=== PATIENT | male | born 1990 | race Caucasian/White ===

== ENCOUNTER 2017-11-01 06:59 | Emergency (ER) | payer BC, OTHER ==
--- NOTE | 2017-11-01 07:54 | EDM.PDOC ---
ED HPI GENERAL MEDICAL PROBLEM - General Chief Complaint: ENT Problem Stated Complaint: CHEST PAIN/SOB Time Seen by Provider: 11/01/17 07:43 Source of Information: Reports: Patient, Family, RN Notes Reviewed History Limitations: Reports: No Limitations - History of Present Illness INITIAL COMMENTS - FREE TEXT/NARRATIVE: 27-year-old gentleman presents to the emergency department today with complaint of neck pain and shortness of breath, he states he's had this for about one month the pain has progressively gotten worse and over the last 24 hours gotten significantly worse. He states he does get short of breath with exertion especially going up steps, he states it hurts to take a deep breath no fevers no nausea vomiting no diaphoresis, sometimes pain radiating into the chest. right side throat pain Pain Score (Numeric/FACES): 5 - Related Data Allergies Allergy/AdvReac Type Severity Reaction Status Date / Time Penicillins Allergy Hives Verified 11/01/17 07:35 Sulfa (Sulfonamide Allergy Difficulty Verified 11/01/17 07:35 Antibiotics) Breathing Home Meds: Home Meds NK [No Known Home Meds] 11/01/17 [History] Past Medical History Respiratory History: Reports: Pneumonia, Recurrent - Past Surgical History HEENT Surgical History: Reports: Myringotomy w Tube(s), Tonsillectomy Respiratory Surgical History: Reports: Other (See Below) Other Respiratory Surgeries/Procedures: lung surgery 2008 Social & Family History - Family History Cardiac: Reports: Heart Failure, Hypertension - Tobacco Use Smoking Status *Q: Current Every Day Smoker Years of Tobacco use: 12 Packs/Tins Daily: 0.5 - Caffeine Use Caffeine Use: Reports: Soda - Recreational Drug Use Recreational Drug Use: No ED ROS GENERAL - Review of Systems Review Of Systems: See Below Constitutional: Denies: Fever, Chills, Weakness HEENT: Reports: No Symptoms Respiratory: Reports: Shortness of Breath. Denies: Wheezing, Cough, Sputum Cardiovascular: Reports: Chest Pain, Dyspnea on Exertion GI/Abdominal: Reports: No Symptoms : Reports: No Symptoms Musculoskeletal: Reports: No Symptoms Skin: Reports: No Symptoms Neurological: Reports: No Symptoms ED EXAM, GENERAL - Physical Exam Exam: See Below Free Text/Narrative:: General: Male, not in any distress, alert and oriented x3 HEENT: head is atraumatic normocephalic, eyes pupils equal round reactive to light, sclera clear no conjunctivitis appreciated. Ears tympanic membranes clear and carrasco landmarks and light reflex are present bilaterally canals are clear. Nose no septal deviation, nares are clear, no blood present. Mouth mucosa is moist and pink no erythema or exudate noted in soft palate, tongue is midline uvula is midline, dentition is intact. Neck: Supple no thyromegaly no tracheal deviation. Nodes: Cervical nodes subclavicular nodes nontender no palpable lymphadenopathy noted. Lungs: clear to auscultation bilaterally with symmetrical respirations, no adventitious noise appreciated. CV: Regular rate and rhythm S1 and S2 appreciated no murmurs rubs or gallops noted. Abdomen: Soft, nontender, no palpable masses or organomegaly appreciated, no distention no guarding bowel sounds are present, . Neuro: Cranial nerves II through XII grossly intact Skin: Warm and dry, intact Extremities: No lower extremity edema appreciated, Course - Vital Signs Last Recorded V/S: Last Vital Signs Temp 97.0 F 11/01/17 07:36 Pulse 77 11/01/17 08:29 Resp 20 11/01/17 08:29 BP 132/83 11/01/17 08:29 Pulse Ox 95 11/01/17 08:29 - Orders/Labs/Meds Orders: Active Orders 24 hr Category Date Time Status Cardiac Monitoring [RC] .As Directed Care 11/01/17 07:49 Active EKG Documentation Completion [RC] ASDIRECTED Care 11/01/17 07:50 Active Chest 2V [CR] Stat Exams 11/01/17 07:50 Taken Chest wo Cont [CT] Stat Exams 11/01/17 09:04 Taken EKG 12 Lead [EK] Stat Ther 11/01/17 07:50 Ordered Labs: Laboratory Tests 11/01/17 11/01/17 11/01/17 Range/Units 08:06 08:06 08:06 WBC 17.0 H (4.5-11.0) K/uL RBC 4.82 (4.30-5.90) M/uL Hgb 14.4 (12.0-15.0) g/dL Hct 41.3 (40.0-54.0) % MCV 86 (80-98) fL MCH 30 (27-31) pg MCHC 35 (32-36) % Plt Count 289 (150-400) K/uL Neut % (Auto) 68 H (36-66) % Lymph % (Auto) 21 L (24-44) % [place] % (Auto) 7 H (2-6) % Eos % (Auto) 3 (2-4) % Baso % (Auto) 1 (0-1) % D-Dimer, Quantitative 149 (0.0-400.0) ng/mL Sodium 142 (140-148) mmol/L Potassium 3.6 (3.6-5.2) mmol/L Chloride 106 (100-108) mmol/L Carbon Dioxide 27 (21-32) mmol/L Anion Gap 8.8 (5.0-14.0) mmol/L BUN 20 H (7-18) mg/dL Creatinine 1.1 (0.8-1.3) mg/dL Est Cr Clr Drug Dosing 116.24 mL/min Estimated GFR (MDRD) > 60 (>60) Glucose 87 (74-106) mg/dL Lactic Acid (0.4-2.0) mmol/L Calcium 8.8 (8.5-10.1) mg/dL Total Bilirubin 0.3 (0.2-1.0) mg/dL AST 13 L (15-37) U/L ALT 23 (12-78) U/L Alkaline Phosphatase 67 (46-116) U/L Troponin I < 0.017 (0.000-0.056) ng/mL NT-Pro-B Natriuret Pep 10 (5-125) pg/mL Total Protein 7.7 (6.4-8.2) g/dL Albumin 4.0 (3.4-5.0) g/dL Globulin 3.7 H (2.3-3.5) g/dL Albumin/Globulin Ratio 1.1 L (1.2-2.2) TSH, Ultra Sensitive (0.358-3.740) uIU/mL 11/01/17 11/01/17 Range/Units 09:00 09:00 WBC (4.5-11.0) K/uL RBC (4.30-5.90) M/uL Hgb (12.0-15.0) g/dL Hct (40.0-54.0) % MCV (80-98) fL MCH (27-31) pg MCHC (32-36) % Plt Count (150-400) K/uL Neut % (Auto) (36-66) % Lymph % (Auto) (24-44) % [place] % (Auto) (2-6) % Eos % (Auto) (2-4) % Baso % (Auto) (0-1) % D-Dimer, Quantitative (0.0-400.0) ng/mL Sodium (140-148) mmol/L Potassium (3.6-5.2) mmol/L Chloride (100-108) mmol/L Carbon Dioxide (21-32) mmol/L Anion Gap (5.0-14.0) mmol/L BUN (7-18) mg/dL Creatinine (0.8-1.3) mg/dL Est Cr Clr Drug Dosing mL/min Estimated GFR (MDRD) (>60) Glucose (74-106) mg/dL Lactic Acid 0.9 (0.4-2.0) mmol/L Calcium (8.5-10.1) mg/dL Total Bilirubin (0.2-1.0) mg/dL AST (15-37) U/L ALT (12-78) U/L Alkaline Phosphatase (46-116) U/L Troponin I (0.000-0.056) ng/mL NT-Pro-B Natriuret Pep (5-125) pg/mL Total Protein (6.4-8.2) g/dL Albumin (3.4-5.0) g/dL Globulin (2.3-3.5) g/dL Albumin/Globulin Ratio (1.2-2.2) TSH, Ultra Sensitive 2.512 (0.358-3.740) uIU/mL Departure - Departure Time of Disposition: 10:37 Disposition: Home, Self-Care 01 Condition: Fair Clinical Impression: Neck pain - Discharge Information Referrals: PCP,None [Primary Care Provider] - Forms: ED Department Discharge Additional Instructions: Recommend you establish with primary care this week recommend tests of a stress test and an echocardiogram for further evaluation of your shortness of breath and neck pain, please call return to the emergency department worsening of symptoms - My Orders Last 24 Hours: My Active Orders 11/01/17 07:49 Cardiac Monitoring [RC] .As Directed 11/01/17 07:50 EKG Documentation Completion [RC] ASDIRECTED Chest 2V [CR] Stat EKG 12 Lead [EK] Stat 11/01/17 09:04 Chest wo Cont [CT] Stat - Assessment/Plan Last 24 Hours: My Active Orders 11/01/17 07:49 Cardiac Monitoring [RC] .As Directed 11/01/17 07:50 EKG Documentation Completion [RC] ASDIRECTED Chest 2V [CR] Stat EKG 12 Lead [EK] Stat 11/01/17 09:04 Chest wo Cont [CT] Stat Plan: Assessment Acuity = acute Site and laterality = right sided neck pain with shortness of breath Etiology = unclear etiology Manifestations = none Location of injury = Home Lab values = WBC elevated at 17.0 consistent leukocytosis, d-dimer is negative, troponin negative, BNP negative thyroid normal at 2.5, CMP unremarkable, chest x -ray does show increased opacity in the right lower lobe, CT scan: IMPRESSION: 1. Posttraumatic or postsurgical deformity about the left hemithorax. 2. Reticular type opacities within the inferior segment of the lingula, and left lower lobe, lateral basilar segment, do not appear acute. 3. There is no acute airspace disease or thoracic lymphadenopathy. 4. Mild, bilateral gynecomastia. Plan I did review CT scan results with him as well as lab work I was not able to find an etiology for his shortness of breath I am recommending echocardiogram and stress test to further rule out any cardiac involvement he is planning on establishing with primary care this week and will follow-up with those tests This note was dictated using [employer] voice recognition software please call with any questions on syntax or eliana.
--- NOTE | 2017-11-02 09:29 | CR ---
Heart size upper limits of normal. No pneumothorax. Mild elevation left hemidiaphragm. Hazy density a t the left costophrenic angle can indicate atelectasis or developing infiltrate.
== END 2017-11-01 10:44 | disposition home or self-care (01) ==
LOC: JP.ED 06:59
DX: M54.2 Cervicalgia (principal); F17.210 Nicotine dependence, cigarettes, uncomplicated; Z88.0 Allergy status to penicillin; Z88.2 Allergy status to sulfonamides; Z87.01 Personal history of pneumonia (recurrent)
CPT/HCPCS: 36415; 71046; 71046-26; 71250; 80053; 83605; 83880; 84443; 84484; 85025; 85379; 93005; 99284-25